=== PATIENT | female | born 2000 | race Caucasian/White ===

== ENCOUNTER 2019-06-16 01:31 | Emergency (ER) | payer BC ==
[~2019-06-16] VITALS: Ht 162.6 cm; Wt 68.2 kg
[2019-06-16 01:36] VITALS: BP 119/63; TEMP 97.1
[2019-06-16 03:00] VITALS: PULSE 87
== END 2019-06-16 03:00 | disposition home or self-care (01) ==
LOC: COL.ER 01:31
DX: S61.211A Laceration without foreign body of left index finger without damage to nail, initial encounter (principal); W26.8XXA Contact with other sharp object(s), not elsewhere classified, initial encounter; Y92.219 Unspecified school as the place of occurrence of the external cause

== ENCOUNTER → 2020-04-29 | Outpatient (CLI) | payer BC | LOC: ZCOL.LAB 16:27 | DX: U07.1 COVID-19 (principal) ==